=== PATIENT | female | born 2000 | race Two or more races ===

== ENCOUNTER 2023-07-20 09:13 | Emergency (ER) | payer SELFPAY ==
[2023-07-20 09:16] VITALS: BP 120/76; PULSE 59; RESP 18; TEMP 36.7; O2SAT 95; BMI 37.8
[2023-07-20 09:50] LABS: Bilirubin Urine NEGATIVE (NEGATIVE); Blood Urine NEGATIVE (NEGATIVE); Clarity Urine CLEAR (CLEAR); Color Urine LT. YELLOW (YELLOW); Glucose Urine UA NEGATIVE (NEGATIVE); Ketones Urine NEGATIVE (NEGATIVE); Leukocyte Esterase Urine NEGATIVE (NEGATIVE); Nitrite Urine NEGATIVE (NEGATIVE); Protein Urine NEGATIVE (NEG/TRACE); Specific Gravity Urine 1.015 (1.005-1.025); Urobilinogen Urine 0.2 EU/dL (0.2-1.0)
[2023-07-20 09:51] LABS: HCG Qualitative Urine* NEGATIVE (NEGATIVE)
[2023-07-20 09:56] LABS: WBC Urine NONE SEEN #/HPF (NONE SEEN)
[2023-07-20 09:57] LABS: Bacteria Urine TRACE #/HPF (NONE SEEN); Cast Seen? NONE SEEN #/LPF (NONE SEEN); Crystals Seen? None Seen #/HPF (None Seen); Mucus Urine NONE SEEN (NONE SEEN); RBC Urine 0-2 #/HPF (0-2); Squamous Epithelial Cell Urine RARE #/LPF (NONE/RARE); Urine Culture Indicated NO
--- NOTE | 2023-07-20 10:12 | ED_ITS ---
HPI - Back Pain/Injury General Chief Complaint: Back Pain/Injury Stated Complaint: FLANK PAIN RIGHT SIDE Time Seen by Provider: 07/20/23 10:08 Source: patient Mode of arrival: walk-in Limitations: no limitations History of Present Illness HPI Narrative: patient's here complaining of pain in her right lower flank area. She has no history of blood in the urine or urinary type symptomatology. No fever shakes or chills. She's not had previous kidney stones or kidney disease. She does not have a pain rating down her leg or buttock area. It is made worse with movement. She has no shortness of breath or chest discomfort. She is otherwise healthy. Related Data Allergies Allergy/AdvReac Type Severity Reaction Status Date / Time No Known Drug Allergies Allergy Verified 07/20/23 09:15 [facility] Social History Smoking status: Never smoker Exam Narrative Exam Narrative: awake alert pleasant moves about comfortably. In a sittinng position if she rotates to the left that causes and reproduces her pain exactly. On inspection of her back is no gross kyphoscoliosis is no evidence of shingles or other skin lesions. Examination her lungs are clear to auscultation bilaterally with no wheezes rales or rhonchi there is no pleural rub. She does not have a radiculopathy type symptoms or radiation to her lower leg. Constitutional Vital Signs, click to edit/add: Last Vital Signs Temp 98.0 F 07/20/23 09:16 Pulse 59 L 07/20/23 09:16 Resp 18 07/20/23 09:16 BP 120/76 07/20/23 09:16 Pulse Ox 95 07/20/23 09:16 O2 Del Method Room Air 07/20/23 09:16 Course Vital Signs Vital signs: Vital Signs Temperature 98.0 F 07/20/23 09:16 Pulse Rate 59 L 07/20/23 09:16 Respiratory Rate 18 07/20/23 09:16 Blood Pressure 120/76 07/20/23 09:16 Pulse Oximetry 95 07/20/23 09:16 Oxygen Delivery Method Room Air 07/20/23 09:16 Temperature 98.0 F 07/20/23 09:16 Pulse Rate 59 L 07/20/23 09:16 Respiratory Rate 18 07/20/23 09:16 Blood Pressure 120/76 11/07/23 09:16 Pulse Oximetry 95 07/20/23 09:16 Oxygen Delivery Method Room Air 07/20/23 09:16 MDM - Back Pain/Injury MDM Narrative Medical decision making narrative: a urinalysis had been done does not show any evidence of infection blood. Her clinical examination shows suggested this is musculoskeletal and not underlying kidney disease and therefore I do not believe she needs a CT scan at this time. She is quite pleasant and does not appear uncomfortable. I'm recommending NSAIDs warm compresses and rest for forty-eight hours Lab Data Labs: Lab Results 07/20/23 Range/Units 09:35 Urine Color Lt. yellow (YELLOW) Urine Clarity Clear (CLEAR) Urine pH 6.0 (5.0-9.0) Ur Specific [place] 1.015 (1.005-1.025) Urine Protein Negative (NEG/TRACE) mg/dL Urine Glucose (UA) Negative (NEGATIVE) mg/dL Urine Ketones Negative (NEGATIVE) mg/dL Urine Occult Blood Negative (NEGATIVE) Urine Nitrite Negative (NEGATIVE) Urine Bilirubin Negative (NEGATIVE) Urine Urobilinogen 0.2 (0.2-1.0) EU/dL Ur Leukocyte Esterase Negative (NEGATIVE) Urine RBC 0-2 (0-2) #/HPF Urine WBC None seen (NONE SEEN) #/HPF Ur Squamous Epith Cells Rare (NONE/RARE) #/LPF Urine Crystals None seen (None Seen) #/HPF Urine Bacteria Trace A (NONE SEEN) #/HPF Urine Casts None seen (NONE SEEN) #/LPF Urine Mucus None seen (NONE SEEN) Ur Culture Indicated? No Urine HCG, Qual Negative (NEGATIVE) Discharge Plan Discharge Chief Complaint: Back Pain/Injury Clinical Impression: Strain of lumbar region Patient Disposition: Home, Self-Care Time of Disposition Decision: 10:14 Additional Instructions: warm compresses thirty minutes three times a day/ibuprofen for three or four days. Stand Alone Forms: Portal Instructions Referrals: Physician,Non-Staff, MD [Primary Care Provider] - 1 week
== END 2023-07-20 10:24 | disposition home or self-care (01) ==
PROVIDERS: Emergency Provider Emergency Medicine Emergency Medical Services
DX: S39.012A Strain of muscle, fascia and tendon of lower back, initial encounter (principal); X58.XXXA Exposure to other specified factors, initial encounter
CPT/HCPCS: 81001; 84703; 99283

== ENCOUNTER 2025-01-01 19:41 | Emergency (ER) | payer MEDICAID, SELFPAY ==
[2025-01-01] VITALS (14 sets, daily range): BP systolic 105–118; BP diastolic 56–81; PULSE 88–140; TEMP 37.9; O2SAT 97–98; BMI 44.9
--- NOTE | 2025-01-01 19:59 | ED_ITS ---
Documented by User: LORAINE Farfan 01/01/25 20:43 HPI HPI - General Adult General Chief complaint: Nausea/Vomiting/Diarrhea Stated complaint: nausea, side pain, diarrhea Time Seen by Provider: 01/01/25 19:52 Source: patient Mode of arrival: walk-in History of Present Illness HPI narrative: Patient is a 24-year-old female presents to the ER with concerns of right-sided flank lower abdominal pain, nausea, vomiting and diarrhea. Patient states she woke up this morning at 3AM with abrupt onset symptoms including multiple bouts of vomiting and diarrhea, she continues to have some nausea. She does not know of anyone with similar symptoms in [place] She has low-grade fever on arrival. Patient denies chest pain or shortness of breath. Denies eating any bad foods. She denies any new medications. Pain is mild to moderate right lower quadrant nonradiating. Patient notes sometimes she feels the urge to urinate but nothing comes out but denies any pain with urination, this menstrual cycle was December 07 Onset (ago): minute(s) Location: Denies head Radiation: Reports abdomen and flank (right) Severity: moderate Quality: Reports sharp; Denies burning or stabbing Pain Consistency: Reports constant Relieving factors: Reports none Exacerbating factors: Reports none Associated symptoms: Reports denies other symptoms and rash (periorbital petechiae from vomiting.) Related Data Home Medications ?Medication ?Instructions ?Recorded ?Confirmed meloxicam 15 mg tablet 15 mg PO DAILY PRN pain 01/01/25 01/01/25 Allergies Allergy/AdvReac Type Severity Reaction Status Date / Time No Known Drug Allergies Allergy Verified 07/20/23 09:15 Opioid HPI Opioid Management Most Recent Opioid Data: Last Pain Scale 4 01/01/25 20:28 01/01/25 Last ED Pain Assessment 01/01/25 20:28 Review of Systems ROS Constitutional Reports: fever Eyes Denies: change in vision Ears, nose, mouth, and throat Denies: throat pain, neck pain, throat swelling or difficulty swallowing Cardiovascular Denies: chest pain, palpitations, edema, swelling of feet/ankles, lightheadedness or leg pain with exertion Respiratory Denies: shortness of breath or cough Gastrointestinal Reports: abdominal pain, nausea, vomiting and diarrhea; Denies: difficulty swallowing or feeling full early Genitourinary Denies: painful urination, urinary frequency, urinary urgency or pelvic pain Musculoskeletal Denies: back pain, neck pain, extremity pain, extremity swelling, joint pain or loss of height Integumentary/Breast Denies: rash or itching Neurological Denies: headache, numbness in extremities or difficulty communicating thoughts Psychiatric Denies: anxiety or mood swings Endocrine Denies: excessive urination or excessive thirst Allergic/Immunologic Denies: hives PFSH PFSH Social History Smoking status: Never smoker Little interest or pleasure in doing things: not at all Feeling down, depressed, or hopeless: not at all Exam Narrative Exam Narrative: Nurses notes and vital signs reviewed and patient is not hypoxic. General: The patient appears well and in no apparent distress. Patient is resting comfortably on cart. Skin: Warm, dry, no pallor noted. Petechial hemorrhages periorbital likely from vomiting. Pain with extraocular movements skin is nontender. Head: Normocephalic, atraumatic Neck: Supple, trachea mid-line, no tenderness, no lymphadenopathy Eye: Pupils are equal, round and reactive to light, EOMI Ears, Nose, Mouth, and Throat: TM are clear, normal light reflex, oral mucosa is moist, no posterior oropharynx erythema or hypertrophy, uvula is mid-line Cardiovascular: Regular Rate and Rhythm Respiratory: Patient is in no distress, no accessory muscle use, lungs are clear to auscultation, no wheezing, rales or rhonchi. Chest Wall: no tenderness Back: non-tender, no CVA tenderness Musculoskeletal: normal ROM, no tenderness, no swelling GI: Normal bowel sounds, no masses appreciated. No rebound, guarding, or rigidity noted. Minimal soreness with palpation of her abdomen appears nonsurgical. No evidence of zoster rash on external inspection. Neurological: A&O x4 Psychiatric: Cooperative Constitutional Vital Signs, click to edit/add: Last Vital Signs Temp 100.2 F 01/01/25 19:46 Pulse 140 H 01/01/25 19:46 Resp 18 01/01/25 19:46 BP 118/70 01/01/25 21:36 Pulse Ox 97 01/01/25 21:50 O2 Del Method Room Air 01/01/25 20:28 Course Vital Signs Vital signs: Vital Signs Temperature 100.2 F 01/01/25 19:46 Pulse Rate 140 H 01/01/25 19:46 Respiratory Rate 18 01/01/25 19:46 Blood Pressure 114/81 01/01/25 19:46 Pulse Oximetry 97 01/01/25 19:46 Oxygen Delivery Method Room Air 01/01/25 19:46 Temperature 100.2 F 01/01/25 19:46 Pulse Rate 140 H 01/01/25 19:46 Respiratory Rate 18 01/01/25 19:46 Blood Pressure 118/70 01/01/25 21:36 Pulse Oximetry 97 01/01/25 21:50 Oxygen Delivery Method Room Air 01/01/25 20:28 Medical Decision Making MDM Narrative Medical decision making narrative: Patient presents with abrupt onset nausea vomiting diarrhea. We have seen several cases of norovirus in the area. Her right lower quadrant abdominal pain has been present for almost a week worsening with onset of symptoms last night. She appears nontoxic. Agreeable to IV fluids and reevaluation with Zofran, Pepcid and Levsin given. Patient reevaluated notes nausea improved with Zofran. We discussed her preliminary lab reports concern with right lower quadrant abdominal pain. We discussed her symptoms and she is agreeable to a CT scan of the abdomen with IV contrast. She be given a second liter of IV fluids. Lab Data Labs: Lab Results 01/01/25 01/01/25 Range/Units 19:53 20:11 WBC 12.7 H (4.0-11.0) 10^3/uL RBC 5.19 (4.20-5.40) 10^6/uL Hgb 14.3 (12.0-16.0) g/dL Hct 42.9 (36.0-48.0) % MCV 82.7 (81.0-99.0) fL MCH 27.6 (26.7-34.0) pg MCHC 33.3 (29.9-35.2) g/dL RDW 12.7 (11.0-15.0) % Plt Count 331 (150-450) 10^3/uL MPV 9.7 (9.5-13.5) fL Neut % (Auto) 88.8 H (43.0-75.0) % Lymph % (Auto) 6.8 L (20.5-60.0) % Reynolds % (Auto) 3.9 (1.7-12.0) % Eos % (Auto) 0.1 L (0.9-7.0) % Baso % (Auto) 0.2 (0.2-2.0) % Neut # (Auto) 11.3 H (1.4-6.5) 10^3/uL Lymph # (Auto) 0.9 L (1.2-3.8) 10^3/uL Reynolds # (Auto) 0.5 (0.3-0.8) 10^3/uL Eos # (Auto) 0.0 (0.0-0.7) 10^3/uL Baso # (Auto) 0.0 (0.0-0.1) 10^3/uL Abs Immat Gran (auto) 0.03 (0.00-0.03) 10^3/uL Imm/Tot Granulo (auto) 0.2 (0.0-0.5) % Sodium 139 (136-145) mmol/L Potassium 3.7 (3.5-5.1) mmol/L Chloride 102 (98-107) mmol/L Carbon Dioxide 26.3 (21.0-32.0) mmol/L Anion Gap 14.4 BUN 11.0 (7.0-18.0) mg/dL Creatinine 0.94 (0.55-1.02) mg/dL Est GFR ( Amer) >60 (>=60 mL/min/1.73m^2) Est GFR (Non-Af Amer) >60 (>=60 mL/min/1.73m^2) BUN/Creatinine Ratio 11.7 Glucose 120 H (74-106) mg/dL Lactate 1.5 (0.4-2.0) mmol/L Calcium 8.4 L (8.5-10.1) mg/dL Total Bilirubin 0.7 (0.2-1.0) mg/dL AST 15 (15-37) U/L ALT 20 (14-59) U/L Alkaline Phosphatase 57 (46-116) U/L Total Protein 7.4 (6.4-8.2) g/dL Albumin 3.5 (3.4-5.0) g/dL Globulin 3.9 g/dL Albumin/Globulin Ratio 0.9 Lipase 140.0 H (16.0-77.0) U/L Serum HCG, Qual Negative (NEGATIVE) Urine Color Yellow (YELLOW) Urine Clarity Clear (CLEAR) Urine pH 5.5 (5.0-9.0) Ur Specific [place] <=1.005 A (1.005-1.025) Urine Protein Trace (NEG/TRACE) mg/dL Urine Glucose (UA) Negative (NEGATIVE) mg/dL Urine Ketones Negative (NEGATIVE) mg/dL Urine Occult Blood Negative (NEGATIVE) Urine Nitrite Negative (NEGATIVE) Urine Bilirubin Negative (NEGATIVE) Urine Urobilinogen 1.0 (0.2-1.0) EU/dL Ur Leukocyte Esterase Negative (NEGATIVE) Urine RBC None seen (0-2) #/HPF Urine WBC 0-2 A (NONE SEEN) #/HPF Ur Squamous Epith Cells Rare (NONE/RARE) #/LPF Urine Crystals None seen (None Seen) #/HPF Urine Bacteria None seen (NONE SEEN) #/HPF Urine Casts None seen (NONE SEEN) #/LPF Urine Mucus None seen (NONE SEEN) Ur Culture Indicated? No Influenza Type A Ag Negative Influenza Type B Ag Negative SARS-CoV-2 Ag (CV2AG) Negative (NEGATIVE) Discharge Plan Discharge Chief Complaint: Nausea/Vomiting/Diarrhea Clinical Impression: Nausea, vomiting and diarrhea, Abdominal pain, right lower quadrant, Ga stroenteritis Patient Disposition: Home, Self-Care Time of Disposition Decision: 22:22 Condition: Good Prescriptions / Home Meds: No Action meloxicam 15 mg tablet 15 mg PO DAILY PRN (Reason: pain) Print Language: Sinhala Instructions: Gastroenteritis (ED), Abdominal Pain (ED) Referrals: Physician,Non-Staff, [Physician] - 1 week Documented by User: Suzanne Sanchez MD 01/01/25 22:28 HPI HPI - General Adult General Chief complaint: Nausea/Vomiting/Diarrhea Stated complaint: nausea, side pain, diarrhea Time Seen by Provider: 01/01/25 19:52 Related Data Home Medications ?Medication ?Instructions ?Recorded ?Confirmed meloxicam 15 mg tablet 15 mg PO DAILY PRN pain 01/01/25 01/01/25 Allergies Allergy/AdvReac Type Severity Reaction Status Date / Time No Known Drug Allergies Allergy Verified 07/20/23 09:15 Opioid HPI Opioid Management Most Recent Opioid Data: Last Pain Scale 4 01/01/25 20:28 01/01/25 Last ED Pain Assessment 01/01/25 20:28 PFSH PFS Social History Smoking status: Never smoker Little interest or pleasure in doing things: not at all Feeling down, depressed, or hopeless: not at all Exam Constitutional Vital Signs, click to edit/add: Last Vital Signs Temp 100.2 F 01/01/25 19:46 Pulse 140 H 01/01/25 19:46 Resp 18 01/01/25 19:46 BP 118/70 01/01/25 21:36 Pulse Ox 97 01/01/25 21:50 O2 Del Method Room Air 01/01/25 20:28 Course Vital Signs Vital signs: Vital Signs Temperature 100.2 F 01/01/25 19:46 Pulse Rate 140 H 01/01/25 19:46 Respiratory Rate 18 01/01/25 19:46 Blood Pressure 114/81 01/01/25 19:46 Pulse Oximetry 97 01/01/25 19:46 Oxygen Delivery Method Room Air 01/01/25 19:46 Temperature 100.2 F 01/01/25 19:46 Pulse Rate 140 H 01/01/25 19:46 Respiratory Rate 18 01/01/25 19:46 Blood Pressure 118/70 01/01/25 21:36 Pulse Oximetry 97 01/01/25 21:50 Oxygen Delivery Method Room Air 01/01/25 20:28 Medical Decision Making [facility] Narrative Medical decision making narrative: Patient presents with abrupt onset nausea vomiting diarrhea. We have seen several cases of norovirus in the area. Her right lower quadrant abdominal pain has been present for almost a week worsening with onset of symptoms last night. She appears nontoxic. Agreeable to IV fluids and reevaluation with Zofran, Pepcid and Levsin given. Patient reevaluated notes nausea improved with Zofran. We discussed her preliminary lab reports concern with right lower quadrant abdominal pain. We discussed her symptoms and she is agreeable to a CT scan of the abdomen with IV contrast. She be given a second liter of IV fluids. This patient was seen and evaluated in conjunction with the physician boiler assistant operator. Please refer to his H&P. She presents for evaluation of acute onset of nausea vomiting and diarrhea around 3 AM. She also had some right lower quadrant abdominal pain on exam. Her white count was 12. Electrolytes and lactic acid were normal. She was medicated with IV fluids Zofran Pepcid and Levsin. On reevaluation she is feeling better and tolerating ice chips and a popsicle. CT scan of the abdomen pelvis shows an unremarkable liver gallbladder pancreas spleen and adrenal glands. Kidneys were normal there was no free air or free fluid. Normal appendix. There was questionable bladder wall thickening versus incomplete distention. The patient denies any urinary symptoms. 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 The patient was aware that she had this issue. Her symptoms have been going on for less than 24 hours and I did not think that giving her any antidiarrheal was indicated as this is likely viral in nature. This was discussed with her. I encouraged her to get some Lomotil if her diarrhea persisted greater than another 24 hours. I encouraged her to drink plenty of fluids and slowly advance her diet. She verbalizes understanding of this and will be discharged home at this time with a prescription for Pepcid and Bentyl. Lab Data Labs: Lab Results 01/01/25 01/01/25 Range/Units 19:53 20:11 WBC 12.7 H (4.0-11.0) 10^3/uL RBC 5.19 (4.20-5.40) 10^6/uL Hgb 14.3 (12.0-16.0) g/dL Hct 42.9 (36.0-48.0) % MCV 82.7 (81.0-99.0) fL MCH 27.6 (26.7-34.0) pg MCHC 33.3 (29.9-35.2) g/dL RDW 12.7 (11.0-15.0) % Plt Count 331 (150-450) 10^3/uL MPV 9.7 (9.5-13.5) fL Neut % (Auto) 88.8 H (43.0-75.0) % Lymph % (Auto) 6.8 L (20.5-60.0) % Reynolds % (Auto) 3.9 (1.7-12.0) % Eos % (Auto) 0.1 L (0.9-7.0) % Baso % (Auto) 0.2 (0.2-2.0) % Neut # (Auto) 11.3 H (1.4-6.5) 10^3/uL Lymph # (Auto) 0.9 L (1.2-3.8) 10^3/uL [place] # (Auto) 0.5 (0.3-0.8) 10^3/uL Eos # (Auto) 0.0 (0.0-0.7) 10^3/uL Baso # (Auto) 0.0 (0.0-0.1) 10^3/uL Abs Immat Gran (auto) 0.03 (0.00-0.03) 10^3/uL Imm/Tot Granulo (auto) 0.2 (0.0-0.5) % Sodium 139 (136-145) mmol/L Potassium 3.7 (3.5-5.1) mmol/L Chloride 102 (98-107) mmol/L Carbon Dioxide 26.3 (21.0-32.0) mmol/L Anion Gap 14.4 BUN 11.0 (7.0-18.0) mg/dL Creatinine 0.94 (0.55-1.02) mg/dL Est GFR ( Amer) >60 (>=60 mL/min/1.73m^2) Est GFR (Non-Af Amer) >60 (>=60 mL/min/1.73m^2) BUN/Creatinine Ratio 11.7 Glucose 120 H (74-106) mg/dL Lactate 1.5 (0.4-2.0) mmol/L Calcium 8.4 L (8.5-10.1) mg/dL Total Bilirubin 0.7 (0.2-1.0) mg/dL AST 15 (15-37) U/L ALT 20 (14-59) U/L Alkaline Phosphatase 57 (46-116) U/L Total Protein 7.4 (6.4-8.2) g/dL Albumin 3.5 (3.4-5.0) g/dL Globulin 3.9 g/dL Albumin/Globulin Ratio 0.9 Lipase 140.0 H (16.0-77.0) U/L Serum HCG, Qual Negative (NEGATIVE) Urine Color Yellow (YELLOW) Urine Clarity Clear (CLEAR) Urine pH 5.5 (5.0-9.0) Ur Specific [place] <=1.005 A (1.005-1.025) Urine Protein Trace (NEG/TRACE) mg/dL Urine Glucose (UA) Negative (NEGATIVE) mg/dL Urine Ketones Negative (NEGATIVE) mg/dL Urine Occult Blood Negative (NEGATIVE) Urine Nitrite Negative (NEGATIVE) Urine Bilirubin Negative (NEGATIVE) Urine Urobilinogen 1.0 (0.2-1.0) EU/dL Ur Leukocyte Esterase Negative (NEGATIVE) Urine RBC None seen (0-2) #/HPF Urine WBC 0-2 A (NONE SEEN) #/HPF Ur Squamous Epith Cells Rare (NONE/RARE) #/LPF Urine Crystals None seen (None Seen) #/HPF Urine Bacteria None seen (NONE SEEN) #/HPF Urine Casts None seen (NONE SEEN) #/LPF Urine Mucus None seen (NONE SEEN) Ur Culture Indicated? No Influenza Type A Ag Negative Influenza Type B Ag Negative SARS-CoV-2 Ag (CV2AG) Negative (NEGATIVE) Discharge Plan Discharge Chief Complaint: Nausea/Vomiting/Diarrhea Clinical Impression: Nausea, vomiting and diarrhea, Abdominal pain, right lower quadrant, Gastroenteritis Patient Disposition: Home, Self-Care Time of Disposition Decision: 22:22 Condition: Good Prescriptions / Home Meds: No Action meloxicam 15 mg tablet 15 mg PO DAILY PRN (Reason: pain) Print Language: Sinhala Instructions: Gastroenteritis (ED), Abdominal Pain (ED) Referrals: Physician,Non-Staff, [Physician] - 1 week
[2025-01-01] MEDS: 0.9 % SODIUM CHLORIDE 1,000 ML 999 ML IV ×2 (20:20→21:09)
[2025-01-01] MEDS: ONDANSETRON PF 4 MG/2 ML VIAL IV (20:20)
[2025-01-01 20:21] LABS: Basophils Percent Auto 0.2 % (0.2-2.0); Eosinophils Percent Auto 0.1 % (0.9-7.0); Hematocrit 42.9 % (36.0-48.0); Hemoglobin 14.3 g/dL (12.0-16.0); Immature Granulocytes Abs Auto 0.03 10^3/uL (0.00-0.03); Immature Granulocytes Pct Auto 0.2 % (0.0-0.5); Lymphocytes Absolute Auto 0.9 10^3/uL (1.2-3.8); Lymphocytes Percent Auto 6.8 % (20.5-60.0); Mean Corpuscular HGB Conc 33.3 g/dL (29.9-35.2); Mean Corpuscular Hemoglobin 27.6 pg (26.7-34.0); Mean Corpuscular Volume 82.7 fL (81.0-99.0); Mean Platelet Volume 9.7 fL (9.5-13.5); Monocytes Absolute Auto 0.5 10^3/uL (0.3-0.8); Monocytes Percent Auto 3.9 % (1.7-12.0); Neutrophils Absolute Auto 11.3 10^3/uL (1.4-6.5); Neutrophils Percent Auto 88.8 % (43.0-75.0); Platelet Count 331 10^3/uL (150-450); Red Blood Count 5.19 10^6/uL (4.20-5.40); Red Cell Distribution Width 12.7 % (11.0-15.0); White Blood Count 12.7 10^3/uL (4.0-11.0)
[2025-01-01] MEDS: FAMOTIDINE/PF 20 MG/2 ML VIAL IV (20:22)
[2025-01-01] MEDS: HYOSCYAMINE SULFATE 0.125 MG TAB.SUBL SL (20:23)
[2025-01-01 20:29] LABS: HCG Qualitative NEGATIVE (NEGATIVE); Internal Control Within Normal Limits
[2025-01-01 20:33] LABS: Influenza Virus A Antigen Negative; Influenza Virus B Antigen Negative; Internal Control Within Normal Limits
[2025-01-01 20:34] LABS: Internal Control Within Normal Limits; SARS-CoV-2 Ag NEGATIVE (NEGATIVE)
[2025-01-01 20:39] LABS: Lactate/Lactic Acid 1.5 mmol/L (0.4-2.0)
[2025-01-01 20:46] LABS: Alanine Aminotransferase 20 U/L (14-59); Albumin Globulin Ratio 0.9; Albumin Level 3.5 g/dL (3.4-5.0); Alkaline Phosphatase 57 U/L (46-116); Anion Gap 14.4; Aspartate Amino Transferase 15 U/L (15-37); BUN Creatinine Ratio 11.7; Bilirubin Total 0.7 mg/dL (0.2-1.0); Calcium 8.4 mg/dL (8.5-10.1); Carbon Dioxide 26.3 mmol/L (21.0-32.0); Chloride 102 mmol/L (98-107); Estimated GFR (African America >60 (>=60 mL/min/1.73m^2); Estimated GFR (Non-African Ame >60 (>=60 mL/min/1.73m^2); Globulin 3.9 g/dL; Glucose 120 mg/dL (74-106); Potassium 3.7 mmol/L (3.5-5.1); Sodium 139 mmol/L (136-145); Total Protein 7.4 g/dL (6.4-8.2)
[2025-01-01 21:54] LABS: Bilirubin Urine NEGATIVE (NEGATIVE); Blood Urine NEGATIVE (NEGATIVE); Clarity Urine CLEAR (CLEAR); Color Urine YELLOW (YELLOW); Glucose Urine UA NEGATIVE (NEGATIVE); Ketones Urine NEGATIVE (NEGATIVE); Leukocyte Esterase Urine NEGATIVE (NEGATIVE); Nitrite Urine NEGATIVE (NEGATIVE); Protein Urine TRACE mg/dL (NEG/TRACE); Specific Gravity Urine <=1.005 (1.005-1.025); pH Urine 5.5 (5.0-9.0)
[2025-01-01 22:06] LABS: Bacteria Urine NONE SEEN #/HPF (NONE SEEN); Cast Seen? NONE SEEN #/LPF (NONE SEEN); Crystals Seen? None Seen #/HPF (None Seen); Mucus Urine NONE SEEN (NONE SEEN); RBC Urine NONE SEEN #/HPF (0-2); Squamous Epithelial Cell Urine RARE #/LPF (NONE/RARE); Urine Culture Indicated NO; WBC Urine 0-2 #/HPF (NONE SEEN)
[2025-01-01] MEDS: ONDANSETRON 4 MG RAPDIS TABLET SL (22:32)
== END 2025-01-01 22:39 | disposition home or self-care (01) ==
PROVIDERS: Personal Emergency Response Attendant; Emergency Provider Emergency Medicine; PCP Family Medicine
DX: R10.31 Right lower quadrant pain (principal); K52.9 Noninfective gastroenteritis and colitis, unspecified; R50.9 Fever, unspecified; R11.2 Nausea with vomiting, unspecified
CPT/HCPCS: 36415; 71045; 74177; 80053; 81001; 83605; 83690; 84703; 85025; 87804; 87811; 96361; 96374; 96375; 99285; J2405; J3490; Q0162; Q9967